=== PATIENT | female | born 1965 | race Caucasian/White ===

== ENCOUNTER → 2019-01-25 | Outpatient (CLI) | payer OTHER | LOC: M.RAD 10:21 | DX: Z12.31 Encounter for screening mammogram for malignant neoplasm of breast (principal) ==

== ENCOUNTER → 2019-02-02 | Outpatient (CLI) | payer OTHER | LOC: M.RAD 01-26 12:41 | DX: N63.10 Unspecified lump in the right breast, unspecified quadrant (principal); R92.2 Inconclusive mammogram ==